=== PATIENT | female | born 2000 | race Caucasian/White ===

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

== ENCOUNTER → 2021-06-01 | Outpatient (CLI) | payer BC | LOC: LAB SHORT 16:45 | DX: N92.6 Irregular menstruation, unspecified (principal); N30.00 Acute cystitis without hematuria | CPT/HCPCS: 87086 ==

== ENCOUNTER → 2021-06-09 | Outpatient (CLI) | payer BC | END | disposition home or self-care (01) | LOC: LAB 13:55 → LAB SHORT 13:55 | DX: R35.0 Frequency of micturition (principal) | CPT/HCPCS: 87086 ==

== ENCOUNTER → 2022-08-25 | Outpatient (CLI) | payer OTHER ==
[2022-08-30 10:10] LABS: CHLAMYDIA TRACHOMATIS, NAA Positive (Negative)
== END | disposition home or self-care (01) ==
LOC: LAB SHORT 17:14 → LAB 17:14
PROVIDERS: Family Medicine
DX: A74.9 Chlamydial infection, unspecified (principal)
CPT/HCPCS: 87491; 87591

== ENCOUNTER → 2022-09-13 | Outpatient (CLI) | payer OTHER ==
[2022-09-15 07:11] LABS: CHLAMYDIA TRACHOMATIS, NAA Negative (Negative)
== END | disposition home or self-care (01) ==
LOC: LAB 12:26 → LAB SHORT 12:26
PROVIDERS: Family Medicine
DX: A74.9 Chlamydial infection, unspecified (principal)
CPT/HCPCS: 87491; 87591

== ENCOUNTER 2022-11-01 12:39 | Day surgery (SDC) | payer OTHER ==
[2022-11-01] VITALS (10 sets, daily range): BP systolic 121–146; BP diastolic 85–96
[~2022-11-01] VITALS: Ht 162.6 cm; Wt 76.8 kg
--- NOTE | 2022-11-01 13:27 | NUR ---
History, Chart, Medications and Allergies reviewed before start of procedure. Lungs clear T/O to Auscultation. Patient confirms NPO status and agrees with scheduled surgery. Pre-Op teaching done. Pt verbalizes understanding. Patient States Post-Procedure ride home has been arranged.
--- NOTE | 2022-11-01 17:05 | NUR ---
REPORT RECIEVED. PT SITTING UP IN BED TOLERATING PO FLUIDS AND SNACK. FAMILY AT BEDSIDE. DENIES PAIN
--- NOTE | 2022-11-01 17:27 | NUR ---
Patient up to Ambulate independently. Gait steady. Discharge instructions reviewed with patient AND PARENTS Patient verbalizes understanding. Copy given to patient to take home. SCANT BLOOD ON [place] PAD Discharged via wheelchair to private car for ride home.
== END 2022-11-01 17:29 | disposition home or self-care (01) ==
LOC: ORSCMMR 12:39 → ORD 13:30 → ORSCMMR 13:30 → ORD 14:00 → ORSCMMR 17:29
PROVIDERS: Obstetrics & Gynecology
PROC: 10D17ZZ Extraction of Products of Conception, Retained, Via Natural or Artificial Opening (ICD-10-PCS; principal; 2022-11-01 13:30)
DX: O03.89 Complete or unspecified spontaneous abortion with other complications (principal)
CPT/HCPCS: 88305; A9270; J0690; J1100; J1885; J2210; J2250; J2405; J2704; J3010; J7120

== ENCOUNTER → 2022-12-05 | Outpatient (CLI) | payer OTHER | END | disposition home or self-care (01) | LOC: LAB 16:13 → LAB SHORT 16:13 | DX: R30.0 Dysuria (principal) | CPT/HCPCS: 87086 ==

== ENCOUNTER → 2025-02-15 | Outpatient (CLI) | payer OTHER | END | disposition home or self-care (01) | LOC: LAB 18:44 → LAB SHORT 18:44 | DX: N39.0 Urinary tract infection, site not specified (principal) | CPT/HCPCS: 87077; 87086; 87186 ==